=== PATIENT | female | born 1965 | race Hispanic/Latino ===

== ENCOUNTER → 2017-12-12 | Outpatient (CLI) | payer OTHER ==
--- NOTE | 2017-12-13 07:32 | Diagnostic Imaging Report ---
EXAMINATION: MRI of the cervical spine without contrast HISTORY: Neck pain radiating to the right upper extremity for the last 2 weeks, neuropathy COMPARISON: None available TECHNIQUE: Sagittal T1, T2, STIR; axial T2, gradient echo. FINDINGS: Curvature: Normal lordosis. Vertebrae: No evidence of neoplasm, infection, or fracture. Possible hemangioma near the base of the dens, superimposed acute infarct or changes limited evaluation. Foramen magnum: No mass, Chiari malformation, or basilar invagination. Spinal Cord: Normal size and signal intensity. Soft Tissues: Unremarkable. Degenerative changes: C1-C2: Prominent inflammatory changes with bone marrow edema throughout the dense and anterior arch of C1 as well as the atlantodental soft tissues, small subchondral cyst and erosions are seen near the tip of the dens. C2-C3: Mild facet arthrosis without stenosis C3-C4: Small disc osteophyte and mild facet arthrosis. No stenoses C4-C5: Small disc osteophyte complex formation, bilateral uncovertebral and facet arthrosis. Mild canal and moderate left foraminal stenosis C5-C6: Disc osteophyte complex formation, bilateral uncovertebral and facet arthrosis. Mild spinal canal and foraminal stenosis mainly and bilaterally at C6-7. On the left. C6-C7: Disc osteophyte complex formation, bilateral uncovertebral and facet arthrosis. Moderate bilateral foraminal narrowing. Mild canal stenoses C7-T1: Mild facet arthrosis without stenosis IMPRESSION: 1. Prominent degenerative changes and superimposed inflammatory changes of the atlantodental joint, correlate with possible rheumatoid arthritis. 2. Mild degenerative spinal canal stenosis at C4-5, C5-6 and C6-7. 3. Moderate degenerative foraminal stenosis on the left at C4-5 and bilaterally at C6-7. Signed by: Dr. Sara Moran M.D. on 12/13/2017 7:29 AM
== END ==
LOC: MRI 16:04
PROVIDERS: ATTEND Specialist
DX: M54.2 Cervicalgia (principal); M50.20 Other cervical disc displacement, unspecified cervical region
CPT/HCPCS: 72141

== ENCOUNTER → 2018-08-25 | Outpatient (CLI) | payer OTHER ==
--- NOTE | 2018-08-25 17:05 | Diagnostic Imaging Report ---
Exam: Bone mineral density study. History: MENOPAUSE Comparison: Data from April 30, 2017 Discussion: Evaluation of the left hip and lumbar spine was performed. The study is technically adequate. The patient's fracture risk is compared to an age-matched control. The patient denies prior surgery/fracture of the spine, hips or forearm. Left hip femoral neck bone mineral density: 0.8 g/cm2, T-score is -0.8, Z-score is 0.3. Left hip total bone mineral density: 0.9 g/cm2, T-score is -0.5, Z-score is 0.2. The BMD change versus baseline is - 3.5% (statistically significant). Lumbar spine total bone mineral density: 1 g/cm2, T-score is -0.8, Z-score is 0.2. The BMD change versus baseline is - 3.5% (statistically significant). Impression: 1. Bone mineralization by WHO Classification is normal, the fracture risk is not increased. 2. A 3.5% decrease in both the left hip and lumbar spine bone mineral density since April 30, 2017. Signed by: Dr. Collin Munson D.O., M.M.M. on 08/25/2018 5:02 PM
--- NOTE | 2018-09-10 09:06 | Diagnostic Imaging Report ---
#[id number] - MGSCRBIL #BILATERAL DIGITAL SCREENING MAMMOGRAM WITH CAD: 08/25/2018 CLINICAL: Routine screening. Comparison is made to exams dated: 04/30/2017 mammogram and 08/06/2015 mammogram - [facility]. Current study contains 4 films. There are scattered fibroglandular elements in both breasts. Current study was also evaluated with a Computer Aided Detection (CAD) system. There are benign calcifications in both breasts. No significant masses, calcifications, or other findings are seen in either breast. There has been no significant interval change. IMPRESSION: BENIGN There is no mammographic evidence of malignancy. A 1 year screening mammogram is recommended. The patient will be notified by letter of the results. Zach kelly/alberto:09/09/2018 14:25:44 Absorption Plant Operator Helper: Suze RAYO(R)(M), [facility] letter sent: Compared to Prior B9 Mammogram BI-RADS: 2 Benign
== END ==
LOC: MAMMO 16:02
PROVIDERS: ATTEND Specialist
DX: Z12.31 Encounter for screening mammogram for malignant neoplasm of breast (principal); Z78.0 Asymptomatic menopausal state
CPT/HCPCS: 77067; 77080

== ENCOUNTER → 2020-01-27 | Day surgery (SDC) | payer OTHER ==
[~2020-01-27] MED LIST: ACETAMINOPHEN/CODEINE 300MG - 30MG TAB ONE; BUPIVACAINE HCL 0.5% INJ 30 ML VIAL INJ ONE; CEFAZOLIN SOD 1 GM VIAL ONE; CEFAZOLIN SOD 1 GM/NS 50ML 100 ML IV ONE; DEXAMETHASONE SOD PHOS INJ 4 MG/ML VIAL ONE; FENTANYL CITRATE/PF 100MCG/2 ML INJ ONE; KETOROLAC TROMETHAMINE 30 MG/ML VIAL ONE; LEVOTHYROXINE112 MCG PO; LIDOCAINE HCL 2% LOCAL INJ 5 ML SDV VIAL INJ ONE; MIDAZOLAM HCL 2 MG/2 ML VIAL ONE; ONDANSETRON HCL INJ 2MG/ML 2ML 2 MG/ML VIAL ONE; PROPOFOL IV EMULSION 10 MG/ML 20 ML VIAL ONE; SEVOFLURANE INHAL SOLN 250 ML PEN BTL ONE
--- OUTSIDE RECORDS SUMMARY | 2020-01-27 06:16 | XMS REPORT ---
Author Author [facility] Address Unknown Phone Unavailable Care Team Providers Care Public Stenographer Name Role Phone IGNACIA FLANNERY Unavailable Unavailable Problems This patient has no known problems. Allergies, Adverse Reactions, Alerts This patient has no known allergies or adverse reactions. Medications This patient has no known medications. Results Test Description Test Time Test Comments Text Results Atomic Results Result Comments MRI RIGHT KNEE WO 2019-12-04 15:05:00 [place] [address] Patient Name: CAMELIA BELLA MR #: [id number] : 1965 Age/Sex: 54/F Req #: [id number] [facility] Physician: Ordered by: IGNACIA FLANNERY MD Report #: [id number] Location: MRI Room/Bed: Procedure: [id number] MRI/MRI RIGHT KNEE WO Exam Date: Exam Time: REPORT STATUS: Signed Right knee MRI without contrast. History: Knee pain. Decreased range of motion. Pain not responding to conservative management. Osteoarthritis. Comparison: None. Technique: Multiplanar multi- sequence MRI of the knee without contrast. Findings: Medial compartment: Complex displaced bucket-handle type tear involving the posterior horn and body segments of the medial meniscus. Meniscal tissue is displaced to the anteriorly. Regions of full-thickness articular cartilage loss in the medial compartment with underlying bone marrow edema. Peripheral marginal osteophytes. The medial collateral ligament complex is intact. Lateral compartment: Mild degeneration of the lateral meniscus without tear. Articular cartilage fraying and deep fissuring at the central lateral femoral condyle with underlying bone marrow edema. Peripheral marginal osteophytes. The lateral collateral ligament complex is intact. Intercondylar notch: Degeneration and scarring of the anterior cruciate ligament. The ACL and PCL are otherwise otherwise. Patellofemoral compartment: Articular cartilage fraying and fissuring in the patellofemoral compartment. Extensor mechanism: The quadriceps and patellar tendons are intact Other findings: There is a joint effusion and synovitis. There is no acute fracture, subluxation or avascular necrosis. Lobulated septated Lara's cyst. IMPRESSION: Complex displaced bucket-handle type medial meniscus tear with advanced degenerative arthrosis in the medial compartment of the knee. Less severe degenerative arthrosis in the lateral and patellofemoral compartments. Joint effusion, synovitis and lobulated septated Lara's cyst. Signed by: Dr. Faisal Negron M.D. on 12/04/2019 3:16 PM Dictated By: FAISAL NEGRON MD, MD Electronically Signed By: FAISAL NEGRON MD, MD on 0 12/04/19 1516 Transcribed By: VALENTIN on 12/04/19 1516 COPY TO: IGNACIA FLANNERY MD MRI KNEE LEFT WO 2019-12-04 15:00:00 [place] [address] Patient Name: CAMELIA BELLA MR #: [id number] : 1965 Age/Sex: 54/F Req #: [id number] Adm Physician: Ordered by: IGNACIA FLANNERY MD Report #: [id number] Location: MRI Room/Bed: Procedure: [id number] MRI/MRI KNEE LEFT WO Exam Date: Exam Time: REPORT STATUS: Signed Left knee MRI without contrast. History: Knee pain. Decreased range of motion. Pain not responding to conservative management. Osteoarthritis. Comparison: None. Technique: Multiplanar multi- sequence MRI of the knee without contrast. Findings: Medial compartment: Complex displaced bucket-handle type tear involving the posterior horn and body segments of the medial meniscus. Meniscal tissue is displaced to the anteriorly. Regions of full-thickness articular cartilage loss in the medial compartment with underlying bone marrow edema. Peripheral marginal osteophytes. The medial collateral ligament complex is intact. Lateral compartment: Mild degeneration of the lateral meniscus without tear. Articular cartilage fraying and deep fissuring at the central lateral femoral condyle with underlying bone marrow edema. Peripheral marginal osteophytes. The lateral collateral ligament complex is intact. Intercondylar notch: Degeneration and scarring of the anterior cruciate ligament. The ACL and PCL are otherwise otherwise. Patellofemoral compartment: Articular cartilage fraying and fissuring in the patellofemoral compartment. Extensor mechanism: The quadriceps and patellar tendons are intact Other findings: There is a joint effusion and synovitis. There is no acute fracture, subluxation or avascular necrosis. Lobulated septated Lara's cyst. IMPRESSION: Complex displaced bucket-handle type medial meniscus tear with advanced degenerative arthrosis in the medial compartment of the knee. Less severe degenerative arthrosis in the lateral and patellofemoral compartments. Joint effusion, synovitis and lobulated septated Lara's cyst. Signed by: Dr. Faisal Negron M.D. on 12/04/2019 3:05 PM Dictated By: FAISAL NEGRON MD, MD Electronically Signed By: FAISAL NEGRON MD, MD on 11/12 02/28 1505 Transcribed By: VALENTIN on 12/04/19 1505 COPY TO: IGNACIA FLANNERY MD MRI SPINE THORACIC WO 2019-12-03 16:01:00 [place] [address] Patient Name: CAMELIA BELLA MR #: [id number] : 1965 Age/Sex: 54/F Req #: [id number] Adm Physician: Ordered by: IGNACIA FLANNERY MD Report #: [id number] Location: MRI Room/Bed: Procedure: [id number] MRI/MRI SPINE THORACIC WO Exam Date: Exam Time: REPORT STATUS: Signed History: Evaluate spinal canal stenosis, back and pain. Comparis on studies: None Technique: Sagittal T1, T2 and STIR without contrast; axial and coronal T2. Findings: Curvature: Normal thoracic kyphosis. Minimal convex left thoracic curvature Paraspinal soft tissues: No signal abnormalities. Spinal cord: The spinal cord is normal in size and signal intensity through the tip of the conus at L1. Vertebrae: No compression fracture, infection or marrow edema. Incidental, nonaggressive-appearing 6 mm T2/T1 hypointense lesion in the T1 vertebral body without associated STIR hyperintensity is unchanged and is most likely benign. Degenerative changes: Mild multilevel disc degeneration with multiple small anterior marginal osteophytes. Patent canal and foramina. IMPRESSION: 1. Mild multilevel disc degeneration. 2. Patent thoracic canal and foramina. Signed by: Dr. Raul Walter M.D. on 12/03/2019 4:10 PM Dictated By: RAUL WALTER MD 161 0 Transcribed By: VALENTIN on 12/03/19 1610 COPY TO: IGNACIA FLANNERY MD MRI SPINE CERVICAL WO 2019-12-03 15:42:00 [place] [address] Patient Name: CAMELIA BELLA MR #: [id number] : 1965 Age/Sex: 54/F Req #: [id number] Adm Physician: Ordered by: IGNACIA FLANNERY MD Report #: [id number] Location: MRI Room/Bed: Procedure: [id number] MRI/MRI SPINE CERVICAL WO Exam Date: Exam Time: REPORT STATUS: Signed History: Evaluate spinal stenosis Comparison studies: Cervical spine right 12/12/2017 Technique: Sagittal T1, T2 and IR, axial T2 and axial gradient echo. Intravenous contrast: None Findings: Alignment: Mild reversal of the usual cervical lordotic curvature centered at at C4-C5. Cervicomedullary junction: No abnormalities. Patent foramen magnum. Soft tissues: No T2 hyperintense inflammatory changes. Spinal cord: Normal in size and signal from the foramen magnum through T1. Vertebrae: Unchanged 10 mm nonaggressive-appearing T2/STIR hyperintense lesion with central trabeculation at the base of the dens, possibly lipid-poor hemangioma. No acute compression fracture. No marrow edema. Degenerative changes: C1- C2: Advanced degenerative changes at the atlantodental articulation with mild persistent reactive T2/STIR hyperintense changes at the tip of the dens. Mild reactive T2/STIR hyperintense changes along the anterior C1 arch may have slightly improved from the prior exam. C2-C3: Mildly degenerated disc with mild facet arthrosis. Patent canal and foramina. C3-C4: Mildly degenerated disc. Small disc osteophyte complex and central disc protrusion without significant canal stenosis. Mild right uncovertebral arthrosis without significant foraminal stenosis. Patent left foramen. C4-C5: Moderately degenerated disc. Disc osteophyte complex results in mild canal stenosis. Uncovertebral arthrosis result in moderate left and mild/moderate right foraminal stenosis. C5-C6: Moderately degenerated disc. Disc osteophyte complex and thickened ligamentum flavum result in mild canal stenosis. Moderate bilateral foraminal stenosis due to uncovertebral. Previous small central disc protrusion is not visualized. C6-C7: Moderately degenerated disc. Disc osteophyte complex and thickened ligamentum flavum result in mild mild canal stenosis. Moderate bilateral foraminal stenosis due to uncovertebral arthrosis (right greater than left). C7-T1: Mildly degenerated disc. Patent canal and foramina. Incidental findings: Mild nonspecific sphenoid sinus mucosal thickening. IMPRESSION: 1. No significant changes from the prior cervical spine MRI of 12/12/2017. 2. Moderately degenerated disks with mild canal stenosis and multilevel moderate foraminal stenosis from C4 to C7. 3. Chronic degenerative changes at the atlantal dental articulation. Signed by: Dr. Raul Walter M.D. on 12/03/2019 4:00 PM Dictated By: RAUL WALTER MD 99 Transcribed By: VALENTIN on 12/03/19 1600 COPY TO: IGNACIA FLANNERY MD MAMMOGRAPHY DIGITAL SCR BILAT 2018-08-25 17:03:00 [place] [address] Patient Name: CAMELIA BELLA MR #: [id number] : 1965 Age/Sex: 53/F Req #: [id number] Adm Physician: Ordered by: IGNACIA FLANNERY MD Report #: [id number] Location: MAMMO Room/Bed: Procedure: [id number] MG/MAMMOGRAPHY DIGITAL SCR BILAT Exam Date: 08/25/18 Exam Time: 1606 REPORT STATUS: Signed #[id number] - MGSCRBIL #BILATERAL DIGITAL SCREENING MAMMOGRAM WITH CAD: 08/25/2018 CLINICAL: Routine screening. Comparison is made to exams dated: 04/30/2017 mammogram and 08/06/2015 mammogram - [facility]. Current study contains 4 films. There are scattered fibroglandular elements in both breasts. Current study was also evaluated with a Computer Aided Detection (CAD) system. There are benign calcifications in both breasts. No significant masses, calcifications, or other findings are seen in either breast. There has been no significant interval change. IMPRESSION: BENIGN There is no mammographic evidence of malignancy. A 1 year screening mammogram is recommended. The patient will be notified by letter of the results. Tiki kelly/new:09/09/2018 14:25:44 Septic Technician: Suze HOLBROOK)(Dixie), [facility] letter sent: Compared to Prior B9 Mammogram BI-RADS: 2 Benign Dictated By: TIKI HERRMANN DO 142 Transcribed By: NEW on 09/09/18 142 COPY TO: IGNACIA FLANNERY MD BONE DXA DUAL ENERGY 2018-08-25 16:58:00 [place] [address] Patient Name: CAMELIA BELLA MR #: [id number] : 1965 Age/Sex: 52/F Req #: [id number] Adm Physician: Ordered by: IGNACIA FLANNERY MD Report #: [id number] Location: MAMMO Room/Bed: Procedure: [id number] DX/BONE DXA DUAL ENERGY Exam Date: Exam Time: REPORT STATUS: Signed Exam: Bone mineral density study. History: MENOPAUSE Comparison: Data from April 30, 2017 Discussion: Evaluation of the left hip and lumbar spine was performed. The study is technically adequate. The patient's fracture risk is compared to an age-matched control. The patient denies prior surgery/fracture of the spine, hips or forearm. Left hip femoral neck bone mineral density: 0.8 g/cm2, T-score is -0.8, Z-score is 0.3. Left hip total bone mineral density: 0.9 g/cm2, T-score is -0.5, Z-score is 0.2. The BMD change versus baseline is - 3.5% (statistically significant). Lumbar spine total bone mineral density: 1 g/cm2, T-score is -0.8, Z-score is 0.2. The BMD change versus baseline is - 3.5% (statistically significant). Impression: 1. Bone mineralization by WHO Classification is normal, the fracture risk is not increased. 2. A 3.5% decrease in both the left hip and lumbar spine bone mineral density since April 30, 2017. Signed by: Dr. Benja Munson D.O., M.M.M. on 08/25/2018 5:02 PM Dictated By: BENJA MUNSON DO 01 Transcribed By: VALENTIN on 08/25/181701 COPY TO: IGNACIA FLANNERY MD MRI SPINE CERVICAL WO [place] [address] Patient Name: CAMELIA BELLA MR #: [id number] : 1965 Age/Sex: 52/F Req #: [id number] Adm Physician: Ordered by: IGNACIA FLANNERY MD Report #: [id number] Location: MRI Room/Bed: Procedure: [id number] MRI/MRI SPINE CERVICAL WO Exam Date: Exam Time: REPORT STATUS: Signed EXAMINATION: MRI of the cervical spine without contrast HISTORY: Neck pain radiating to the right upper extremity for the last 2 weeks, neuropathy COMPARISON: None available TECHNIQUE: Sagittal T1, T2, STIR; axial T2, gradient echo. FINDINGS: Curvature: Normal lordosis. Vertebrae: No evidence of neoplasm, infection, or fracture. Possible hemangioma near the base of the dens, superimposed acute infarct or changes limited evaluation. Foramen magnum: No mass, Chiari malformation, or basilar invagination. Spinal Cord: Normal size and signal intensity. Soft Tissues: Unremarkable. Degenerative changes: C1-C2: Prominent inflammatory changes with bone marrow edema throughout the dense and anterior arch of C1 as well as the atlantodental soft tissues, small subchondral cyst and erosions are seen near the tip of the dens. C2-C3: Mild facet arthrosis without stenosis C3-C4: Small disc osteophyte and mild facet arthrosis. No stenoses C4-C5: Small disc osteophyte complex formation, bilateral uncovertebral and facet arthrosis. Mild canal and moderate left foraminal stenosis C5- C6: Disc osteophyte complex formation, bilateral uncovertebral and facet arth rosis. Mild spinal canal and foraminal stenosis mainly and bilaterally at C6- 7. On the left. C6-C7: Disc osteophyte complex formation, bilateral uncovertebral and facet arthrosis. Moderate bilateral foraminal narrowing. Mild canal stenoses C7-T1: Mild facet arthrosis without stenosis IMPRESSION: 1. Prominent degenerative changes and superimposed inflammatory changes of the atlantodental joint, correlate with possible rheumatoid arthritis. 2. Mild degenerative spinal canal stenosis at C4-5, C5-6 and C6-7. 3. Moderate degenerative foraminal stenosis on the left at C4-5 and bilaterally at C6-7. Signed by: Dr. Glen Moran M.D. on 12/13/2017 7:29 AM Dictated By: GLEN MORAN MD 8 Transcribed By: VALENTIN on 12/13/17728 COPY TO: IGNACIA FLANNERY MD
[2020-01-27 11:20] VITALS: BP 121/68
--- NOTE | 2020-01-28 17:20 | Operative Report ---
DATE OF PROCEDURE: 01/27/2020 SURGEON: Yuri Ferreira MD PREOPERATIVE DIAGNOSES: 1. Left knee medial meniscus tear. 2. Left knee degenerative joint disease of the knee. POSTOPERATIVE DIAGNOSES: 1. Left knee medial meniscus tear. 2. Left knee lateral meniscus tear. 3. Left knee degenerative joint disease of the knee. OPERATIONS/PROCEDURES: The patient underwent: 1. Left knee exam under anesthesia. 2. Left knee arthroscopy. 3. Left knee partial medial meniscectomy. 4. Left knee partial lateral meniscectomy. 5. Left knee chondroplasty of the patella, the trochlea, the medial femoral condyle and medial tibial plateau, the lateral femoral condyle and lateral tibial plateau. POOL NURSE: CLAYTON Zamora ANESTHESIA: General endotracheal intubation anesthesia. IV FLUIDS: Per anesthesia record. BRIEF DISCUSSION OF THE PATIENT'S OPERATIVE PROCEDURE: Ms. Garcia was taken to the operating room and placed in the supine position on the operating table. Following induction of general anesthesia as well as endotracheal intubation, the patient's left lower extremity was examined under anesthesia. She was found to have a mild effusion within the knee joint, but otherwise ligamentously stable knee. The patient's lower extremity was prepped and draped in standard surgical fashion. A two-port technique was used to provide this patient arthroscopic evaluation of the knee joint. Examination of the suprapatellar pouch and medial and lateral gutters found no evidence of loose bodies. There was, however, evidence of chondromalacia of the patella and trochlear surfaces. The scope was advanced to the medial compartment. Examination of the medial compartment demonstrated a macerated torn medial meniscus. There was also chondromalacia articulating surfaces. A combination of biting forceps and motorized shaver were used to resect the torn portion of the meniscus. A chondroplasty of the medial femoral condyle and medial tibial plateau performed at this time. The scope was advanced into the intercondylar notch. The anterior cruciate ligament was identified and found to be intact. The scope was then advanced into the lateral compartment and there was a tear in the posterior horn of the lateral meniscus. There was also chondromalacia of the articulating surfaces. A combination of biting forceps and motorized shaver were used to resect the torn portion of the meniscus. Chondroplasties of the lateral femoral condyle and lateral tibial plateau performed at this time. The scope was then placed in the suprapatellar pouch and chondroplasties of the patella and trochlea performed. The knee was inflated with sterile normal saline. The portal sites were closed using 4-0 nylon suture. The portal sites as well as the knee itself were injected with 0.5% Marcaine with epinephrine. Sterile dressings were applied. The patient was awakened and taken to the postanesthesia care unit in stable condition. MD JESSICA Michelle/MODL /[id number]
== END | disposition home or self-care (01) ==
LOC: OR 06:14
PROVIDERS: ATTEND Specialist
DX: S83.222A Peripheral tear of medial meniscus, current injury, left knee, initial encounter (principal); S83.282A Other tear of lateral meniscus, current injury, left knee, initial encounter; M22.42 Chondromalacia patellae, left knee; S83.221A Peripheral tear of medial meniscus, current injury, right knee, initial encounter; M17.0 Bilateral primary osteoarthritis of knee; E03.9 Hypothyroidism, unspecified; I44.0 Atrioventricular block, first degree; X58.XXXA Exposure to other specified factors, initial encounter; Z01.810 Encounter for preprocedural cardiovascular examination
CPT/HCPCS: 29880; 93005; J0690 ×2; J1100; J1885; J2001; J2250; J2405; J2704; J3010

== ENCOUNTER 2020-02-29 07:46 | Outpatient (RCR) | payer OTHER ==
[~2020-02-29 07:46] MED LIST changes: -ACETAMINOPHEN/CODEINE 300MG - 30MG TAB ONE; -BUPIVACAINE HCL 0.5% INJ 30 ML VIAL INJ ONE; -CEFAZOLIN SOD 1 GM VIAL ONE; -CEFAZOLIN SOD 1 GM/NS 50ML 100 ML IV ONE; -DEXAMETHASONE SOD PHOS INJ 4 MG/ML VIAL ONE; -FENTANYL CITRATE/PF 100MCG/2 ML INJ ONE; -KETOROLAC TROMETHAMINE 30 MG/ML VIAL ONE; -LIDOCAINE HCL 2% LOCAL INJ 5 ML SDV VIAL INJ ONE; -MIDAZOLAM HCL 2 MG/2 ML VIAL ONE; -ONDANSETRON HCL INJ 2MG/ML 2ML 2 MG/ML VIAL ONE; -PROPOFOL IV EMULSION 10 MG/ML 20 ML VIAL ONE; -SEVOFLURANE INHAL SOLN 250 ML PEN BTL ONE
== END 2020-03-10 ==
LOC: PT 07:46
PROVIDERS: ATTEND Specialist
DX: M17.12 Unilateral primary osteoarthritis, left knee (principal); M25.562 Pain in left knee; M62.81 Muscle weakness (generalized); R26.2 Difficulty in walking, not elsewhere classified; M25.662 Stiffness of left knee, not elsewhere classified; M25.661 Stiffness of right knee, not elsewhere classified

== ENCOUNTER 2020-04-01 07:59 | Outpatient (RCR) | payer OTHER | END 2020-04-10 | LOC: PT 07:59 | PROVIDERS: ATTEND Specialist | DX: M17.12 Unilateral primary osteoarthritis, left knee (principal); M62.81 Muscle weakness (generalized); R26.2 Difficulty in walking, not elsewhere classified; M25.562 Pain in left knee; M25.662 Stiffness of left knee, not elsewhere classified | CPT/HCPCS: 97139 ==